=== PATIENT | male | born 1960 | race Caucasian/White ===

== ENCOUNTER 2022-05-14 20:57 | Emergency (ER) | payer OTHER ==
[2022-05-14] MEDS: Dexamethasone 1 MG/ML Oral Drops 4 ML UD Cup PO ONE (21:28)
== END 2022-05-14 21:33 | disposition home or self-care (01) ==
LOC: VM.ED 20:57
DX: L24.9 Irritant contact dermatitis, unspecified cause (principal); E11.9 Type 2 diabetes mellitus without complications; Z79.899 Other long term (current) drug therapy; Z79.84 Long term (current) use of oral hypoglycemic drugs
CPT/HCPCS: 99283; A9270-GY